=== PATIENT | female | born 1950 | race Asian ===

== ENCOUNTER 2020-07-11 11:12 | Emergency (ER) | payer OTHER, SELFPAY ==
[~2020-07-11] VITALS: Ht 152.4 cm; Wt 59.0 kg
[2020-07-11 11:16] VITALS: BP 130/75; Ht 152.4 cm; Wt 59.0 kg
[2020-07-11 12:12] LABS: CALCIUM 8.5 mg/dL (8.5-10.1); CARBON DIOXIDE 24.1 mmol/L (21-32); CREATININE SERUM 1.1 mg/dL (0.6-1.0); POTASSIUM SERUM 3.6 mmol/L (3.5-5.1)
[2020-07-11 12:34] LABS: BASOPHIL % 0.1 % (0.2-1.3); PLATELET COUNT 164 x10^3mcL (179-408); RED CELL DISTRIBUTION WIDTH 13.8 % (12.3-17.7)
[2020-07-14] MEDS ORDERED: ZOF4 PO (02:03)
[2020-07-14] MEDS ORDERED: LOPRESSOR50 M1 PO (02:03)
[2020-07-14] MEDS ORDERED: APAP325 MG (02:03)
[2020-07-14] MEDS ORDERED: TESSALON PERLE100 MG PO (02:03)
[2020-07-14] MEDS ORDERED: AMLODIPINE-OLM1 EAC1 PO (02:04)
[2020-07-14] MEDS ORDERED: NOR5 PO (02:04)
[2020-07-14] MEDS ORDERED: LEVAQUIN500 M1 (02:04)
[2020-07-14] MEDS ORDERED: PROAIR HFA8.5 GM IH (02:05)
== END 2020-07-11 13:40 | disposition home or self-care (01) ==
LOC: ED 11:12
PROVIDERS: Emergency Medicine
DX: U07.1 COVID-19 (principal); I10 Essential (primary) hypertension
CPT/HCPCS: Q0162; U0003